=== PATIENT | male | born 1960 | race Caucasian/White ===

== ENCOUNTER 2021-09-16 17:30 | Emergency (ER) | payer SELFPAY ==
[~2021-09-16] VITALS: Ht 177.8 cm; Wt 91.0 kg
[2021-09-16 17:40] VITALS: BP 129/84
== END 2021-09-16 20:16 | disposition left against medical advice (07) ==
LOC: ER 17:39
DX: Z53.21 Procedure and treatment not carried out due to patient leaving prior to being seen by health care provider (principal)